=== PATIENT | male | born 1960 | race Caucasian/White ===

== ENCOUNTER → 2016-10-07 | Outpatient (CLI) | payer BC ==
[~2016-10-07] MED LIST: ACHD5005 PO; AMLO10TA2 PO; ASPI-954 PO; BACL10TA; BLOOD PRESSURE MED; BP MED; CEFP200T2 PO; CPR500T PO; CYCL5TAB PO; DOXY100C2 PO; FLT05NA16 NSEACH; FLUT100D2 IH; HCT25T PO; HYDR118S10 PO; HYDR1TAB8 OP; LISI10TA PO; LRT10T PO; MOME13HF2 IH; NEBI20TA2 PO; NEBI5TAB8 PO; ONDAN4ODT SL; ONDN4T PO; OXYC-12 PO; OXYC-272 PO; PANT20TA PO; PANT40TA2 PO; PRD5T PO; SUCR1TAB PO
--- NOTE | 2016-10-07 12:27 | Diagnostic Imaging Report ---
EXAMINATION: Two views of the right heel. INDICATION: Right foot pain. FINDINGS: No fracture or dislocation is seen. No focal mass. No significant degenerative changes or spurring. IMPRESSION: Unremarkable exam. Dictated by: Dictated on workstation # [id number]
== END ==
LOC: RAD 11:53
DX: M79.671 Pain in right foot (principal)
CPT/HCPCS: 73650